=== PATIENT | female | born 1995 | race Caucasian/White ===

== ENCOUNTER 2025-08-19 22:54 | Emergency (ER) | payer BC ==
[~2025-08-19] VITALS: Ht 172.7 cm; Wt 59.0 kg
[2025-08-19 23:23] VITALS: BP 121/78; TEMP 98.4; O2SAT 100
[2025-08-19] MEDS ORDERED: TDAP [DIPH/PERTUSSIS/TET] 0.5 ML VIAL IM ONE (23:25)
[2025-08-19] MEDS: TDAP [DIPH/PERTUSSIS/TET] 0.5 ML VIAL IM ONE (23:30)
== END 2025-08-20 01:40 | disposition home or self-care (01) ==
LOC: ER 23:12
DX: S01.112A Laceration without foreign body of left eyelid and periocular area, initial encounter (principal); Z60.2 Problems related to living alone; W26.0XXA Contact with knife, initial encounter; Y93.89 Activity, other specified; Y92.89 Other specified places as the place of occurrence of the external cause; Y99.8 Other external cause status
CPT/HCPCS: 90715